=== PATIENT | male | born 1990 | race Caucasian/White ===

== ENCOUNTER 2017-12-14 11:05 | Emergency (ER) | payer OTHER ==
[~2017-12-14] VITALS: Ht 200.7 cm; Wt 83.8 kg
[2017-12-14 11:10] VITALS: TEMP 36.6; Ht 200.7 cm; Wt 83.8 kg
[2017-12-14 11:51] LABS: BASO % 0.3 %; BASO ABS # 0.01 K/uL (0-0.2); EOS % 2.4 %; EOS ABS # 0.09 K/uL (0-0.5); HEMATOCRIT 42.5 % (42-52); HEMOGLOBIN 15.5 g/dL (14.0-18.0); LYMPH % 37.1 %; LYMPH ABS # 1.39 K/uL (1.2-3.4); MEAN CELL VOLUME 85.9 fL (80-100); MEAN CORPUSCULAR HEMOGLOBIN 31.3 pg (25-34); MEAN CORPUSCULAR HGB CONC 36.5 g/dl (32-36); MEAN PLATELET VOLUME 9.2 fL (7.4-10.4); MONO % 8.3 %; MONO ABS # 0.31 K/uL (0.11-0.59); NEUT % 51.9 %; NEUT ABS # 1.95 K/uL (1.4-6.5); PLATELET COUNT 116 K/uL (130-400); RED CELL DISTRIBUTION WIDTH CV 13.1 % (11.5-14.5); RED CELL DISTRIBUTION WIDTH SD 41.4 fL (36.4-46.3); WHITE BLOOD COUNT 3.75 K/uL (4.8-10.8)
--- NOTE | 2017-12-14 12:07 | EMERGENCY ROOM VISIT NOTE ---
History Report prepared by Scribe: Isabela Saenz Under the Supervision of: Dr. Jessica Garcia M.D. First contact with patient: 11:28 Chief Complaint: MENTAL HEALTH EVALUATION Stated Complaint: CUT HIMSELF History of Present Illness The patient is a 27 year old male who presents to the Emergency Room with complaints of a suicide attempt. He was brought to the ED accompanied by 2 guards from [facility] where he resides. This morning he cut his left arm with a piece of glass he found in the group home yard. He states he then swallowed the piece of glass. He denies any throat pain or pain in his esophagus. He denies any abdominal pain. The patient admits to suicidal ideation but denies any homicidal ideation. He does not know when his last Tetanus shot was. Source of History: patient Onset: [employer] Position: other (global) Timing: constant Associated Symptoms: No sorethroat, No abdominal pain Review of Systems See HPI for pertinent positives & negatives. A total of 10 systems reviewed and were otherwise negative. Past Medical & Surgical Medical Problems: (1) No significant past medical history Social History Smoking Status: Current Every Day Smoker Alcohol Use: none Drug Use: none Marital Status: single Housing Status: other ([facility]) Occupation Status: unemployed Current/Historical Medications Unable to Obtain Active Prescriptions or Reported Meds Physical Exam Vital Signs Date Time Temp Pulse Resp B/P (MAP) Pulse Ox O2 Delivery O2 Flow Rate FiO2 12/14/17 13:10 53 16 115/73 99 Room Air 12/14/17 11:10 36.6 56 17 125/74 99 Room Air Physical Exam Vital signs reviewed. General: Well-appearing 27 year old male, in no significant distress. HEENT: No scleral icterus, PERRLA, neck supple. Atraumatic. Cardiovascular: Regular rate and rhythm, no extra sounds. Pulmonary: Clear to auscultation bilaterally, normal work of breathing. Abdomen: Soft, mild LUQ tenderness to palpation, nondistended, positive bowel sounds. Musculoskeletal: Atraumatic, no peripheral edema. Left upper extremity has multiple superficial abrasions and lacerations in a linear fashion. Neurologic: Patient awake alert and oriented x 3 Skin: Warm, dry, no rash Medical Decision & Procedures ER Provider Diagnostic Interpretation: Radiology results as stated below per my review and radiologist interpretation: SINGLE VIEW CHEST CLINICAL HISTORY: Foreign body ingestion. FINDINGS: 2 AP, portable, upright chest radiographs are obtained. No prior studies are available for comparison at the time of dictation. The examination is degraded by portable technique and patient rotation. The cardiomediastinal silhouette is unremarkable. The lungs and pleural spaces are clear. No pneumothorax is seen. The bony thorax is grossly intact. No radiodense foreign body projects over the thorax. IMPRESSION: 1. No active disease in the chest. 2. No radiodense foreign body is identified. Electronically signed by: Jian Thomson M.D. 12/14/2017 12:18 PM KUB CLINICAL HISTORY: Foreign body ingestion. FINDINGS: 2 AP, portable, supine abdominal radiographs are obtained. No prior studies are available for comparison at the time of dictation. There is a nonobstructed abdominal bowel gas pattern. Moderate colonic fecal retention is noted. There is no evidence of intraperitoneal free air on these supine views. No radiodense foreign body is identified. There are no abnormal abdominal calcifications. Phleboliths are seen in the left hemipelvis. The bony structures appear intact. IMPRESSION: 1. Nonobstructed abdominal bowel gas pattern. 2. No radiodense foreign body is identified. Electronically signed by: Jian Thomson M.D. 12/14/2017 12:17 PM Laboratory Results 12/14/17 11:40 Red Blood Count 4.95, Mean Corpuscular Volume 85.9, Mean Corpuscular Hemoglobin 31.3, Mean Corpuscular Hemoglobin Concent 36.5, Mean Platelet Volume 9.2, Neutrophils (%) (Auto) 51.9, Lymphocytes (%) (Auto) 37.1, Monocytes (%) (Auto) 8.3, Eosinophils (%) (Auto) 2.4, Basophils (%) (Auto) 0.3, Neutrophils # (Auto) 1.95, Lymphocytes # (Auto) 1.39, Monocytes # (Auto) 0.31, Eosinophils # (Auto) 0.09, Basophils # (Auto) 0.01 12/14/17 11:40 Test 12/14/17 11:40 12/14/17 12:32 White Blood Count 3.75 K/uL (4.8-10.8) Red Blood Count 4.95 M/uL (4.7-6.1) Hemoglobin 15.5 g/dL (14.0-18.0) Hematocrit 42.5 % (42-52) Mean Corpuscular Volume 85.9 fL (80-100) Mean Corpuscular Hemoglobin 31.3 pg (25-34) Mean Corpuscular Hemoglobin Concent 36.5 g/dl (32-36) Platelet Count 116 K/uL (130-400) Mean Platelet Volume 9.2 fL (7.4-10.4) Neutrophils (%) (Auto) 51.9 % Lymphocytes (%) (Auto) 37.1 % Monocytes (%) (Auto) 8.3 % Eosinophils (%) (Auto) 2.4 % Basophils (%) (Auto) 0.3 % Neutrophils # (Auto) 1.95 K/uL (1.4-6.5) Lymphocytes # (Auto) 1.39 K/uL (1.2-3.4) Monocytes # (Auto) 0.31 K/uL (0.11-0.59) Eosinophils # (Auto) 0.09 K/uL (0-0.5) Basophils # (Auto) 0.01 K/uL (0-0.2) RDW Standard Deviation 41.4 fL (36.4-46.3) RDW Coefficient of Variation 13.1 % (11.5-14.5) Immature Granulocyte % (Auto) 0.0 % Immature Granulocyte # (Auto) 0.00 K/uL (0.00-0.02) Anion Gap 6.0 mmol/L (3-11) Est Creatinine Clear Calc Drug Dose 145.2 ml/min Estimated GFR () 133.9 Estimated GFR (Non- 115.5 BUN/Creatinine Ratio 24.4 (10-20) Calcium Level 8.8 mg/dl (8.5-10.1) Total Bilirubin 2.2 mg/dl (0.2-1) Direct Bilirubin 0.4 mg/dl (0-0.2) Aspartate Amino Transf (AST/SGOT) 24 U/L (15-37) Alanine Aminotransferase (ALT/SGPT) 32 U/L (12-78) Alkaline Phosphatase 65 U/L (45-117) Total Protein 7.5 gm/dl (6.4-8.2) Albumin 4.4 gm/dl (3.4-5.0) Salicylates Level mg/dl (2.8-20) Acetaminophen Level ug/ml (10-30) Urine Color YELLOW Urine Appearance CLEAR (CLEAR) Urine pH 7.0 (4.5-7.5) Urine Specific [place] 1.012 (1.000-1.030) Urine Protein NEG (NEG) Urine Glucose (UA) NEG (NEG) Urine Ketones NEG (NEG) Urine Occult Blood NEG (NEG) Urine Nitrite NEG (NEG) Urine Bilirubin NEG (NEG) Urine Urobilinogen NEG (NEG) Urine Leukocyte Esterase NEG (NEG) Urine Opiates Screen NEG (NEG) Urine Methadone, Qualitative NEG (NEG) Urine Barbiturates NEG (NEG) Urine Phencyclidine (PCP) Level NEG (NEG) Ur Amphetamine/Methamphetamine NEG (NEG) MDMA (Ecstasy) Screen NEG (NEG) Urine Benzodiazepines Screen NEG (NEG) Urine Cocaine Metabolite NEG (NEG) Urine Marijuana (THC) NEG (NEG) Laboratory results per my review. Medications Administered Medications (Trade) Dose Ordered Sig/Fede Route Start Time Stop Time Status Last Admin Dose Admin Diphtheria/ Pertussis/Tetanus Vacc (Adacel Inj) 0.5 ml ONCE ONCE IM. 12/14/17 12:15 12/14/17 12:16 DC 12/14/17 12:28 0.5 ML ED Course 1201: Past medical records reviewed. The patient was evaluated in room A3. A complete history and physical examination was performed. 1215: Adacel inj 0.5 ml IM. 1300: I reevaluated the patient. He is feeling well and resting comfortably. I discussed his results and discharge instructions and he verbalized complete understanding and agreement. Medical Decision Differential Diagnoses: Foreign body of esophagus, foreign body of the stomach, esophageal perforation, mood disorder, infection, hypoglycemia, electrolyte abnormalities, cardiac sources, intracerebral event, toxicologic, neurologic, as well as others were entertained. This patient was evaluated and appeared to be in no significant distress. Physical examination reveals multiple lacerations that are superficial in nature to the left forearm. The wounds were cleansed and dressed by nursing staff. Patient's tetanus status was updated. X-rays of the chest and abdomen reveal no radiopaque foreign body or evidence of free air. The patient will be discharged back to the group home. The [facility] can perform a dressing change daily. [facility] physicians will need to observe the patient for any signs or symptoms of foreign body or viscus perforation. Patient will be discharged for psychiatric care and further management at the group home and return to the ER for worsening of symptoms or any medical concerns. Medication Reconcilliation Current Medication List: was personally reviewed by me Blood Pressure Screening Patient's blood pressure: Normal blood pressure Blood pressure disposition: Did not require urgent referral Impression Primary Impression: Self mutilating behavior Scribe Attestation The scribe's documentation has been prepared under my direction and personally reviewed by me in its entirety. I confirm that the note above accurately reflects all work, treatment, procedures, and medical decision making performed by me. Departure Information Dispostion Home / Self-Care Prescriptions Unable to Obtain Active Prescriptions or Reported Meds Referrals Erendira COBB (PCP) Patient Instructions [facility] Additional Instructions Diagnosis: Self mutilating behavior Your tetanus status was updated today. Monitor for signs of abdominal distention, rectal bleeding or significant pain. Consider monitoring for suicide precautions. Have the left arm wounds reevaluated by the [facility] in 2 days. Wash and dry the wounds with warm water and soap once daily, apply antibiotic ointment and a dressing. Return to the emergency department for worsening of symptoms or any medical concerns.
[2017-12-14 12:10] LABS: ALBUMIN 4.4 gm/dl (3.4-5.0); CALCIUM 8.8 mg/dl (8.5-10.1); CREATININE 0.89 mg/dl (0.60-1.40); POTASSIUM 4.3 mmol/L (3.5-5.1)
[2017-12-14 12:12] LABS: TOTAL PROTEIN 7.5 gm/dl (6.4-8.2)
[2017-12-14] MEDS ORDERED: DIPHTHERIA/TETANUS/PERTUSSIS 0.5 ML SYR/VIAL IM. ONE (12:15)
--- NOTE | 2017-12-14 12:19 | DIAGNOSTIC IMAGING REPORT ---
KUB CLINICAL HISTORY: Foreign body ingestion. FINDINGS: 2 AP, portable, supine abdominal radiographs are obtained. No prior studies are available for comparison at the time of dictation. There is a nonobstructed abdominal bowel gas pattern. Moderate colonic fecal retention is noted. There is no evidence of intraperitoneal free air on these supine views. No radiodense foreign body is identified. There are no abnormal abdominal calcifications. Phleboliths are seen in the left hemipelvis. The bony structures appear intact. IMPRESSION: 1. Nonobstructed abdominal bowel gas pattern. 2. No radiodense foreign body is identified. Electronically signed by: Jian Thomson M.D. 12/14/2017 12:17 PM Dictated Date/Time: 12/14/2017 12:16 PM
--- NOTE | 2017-12-14 12:20 | DIAGNOSTIC IMAGING REPORT ---
SINGLE VIEW CHEST CLINICAL HISTORY: Foreign body ingestion. FINDINGS: 2 AP, portable, upright chest radiographs are obtained. No prior studies are available for comparison at the time of dictation. The examination is degraded by portable technique and patient rotation. The cardiomediastinal silhouette is unremarkable. The lungs and pleural spaces are clear. No pneumothorax is seen. The bony thorax is grossly intact. No radiodense foreign body projects over the thorax. IMPRESSION: 1. No active disease in the chest. 2. No radiodense foreign body is identified. Electronically signed by: Jian Thomson M.D. 12/14/2017 12:18 PM Dictated Date/Time: 12/14/2017 12:17 PM
[2017-12-14 13:10] VITALS: BP 115/73; PULSE 53; O2SAT 99
== END 2017-12-14 13:25 | disposition home or self-care (01) ==
LOC: C.EDB 11:13 → C.EDA 13:25
DX: S51.812A Laceration without foreign body of left forearm, initial encounter (principal); X78.0XXA Intentional self-harm by sharp glass, initial encounter; Y92.149 Unspecified place in prison as the place of occurrence of the external cause; F17.210 Nicotine dependence, cigarettes, uncomplicated